=== PATIENT | female | born 2000 | race Caucasian/White ===

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

== ENCOUNTER → 2022-01-24 | Outpatient (CLI) | payer BC | LOC: RAD 08:13 | DX: R10.9 Unspecified abdominal pain (principal) | CPT/HCPCS: Q9967 ==